=== PATIENT | male | born 1950 | race Caucasian/White ===

== ENCOUNTER → 2023-05-03 06:23 | Day surgery (SDC) | payer MEDICARE, OTHER, SELFPAY | LOC: GI 06:23 | PROVIDERS: ATTENDING PHYSICIAN Specialist; FAMILY PHYSICIAN Physician Assistant Medical | DX: Z12.11 Encounter for screening for malignant neoplasm of colon (principal); Z86.010 Personal history of colon polyps; K57.30 Diverticulosis of large intestine without perforation or abscess without bleeding; D12.3 Benign neoplasm of transverse colon; D12.0 Benign neoplasm of cecum; D12.2 Benign neoplasm of ascending colon; D12.5 Benign neoplasm of sigmoid colon; K63.5 Polyp of colon | CPT/HCPCS: 45385; 45380; 88305 ==

== ENCOUNTER 2023-05-15 02:30 | Emergency (ER) | payer MEDICARE, OTHER, SELFPAY ==
[2023-05-15 02:36] VITALS: BP 165/98
[2023-05-15 03:14] VITALS: BMI 29.1
[2023-05-15 03:23] VITALS: BP 128/65
--- NOTE | 2023-05-15 03:46 | ED.GENMED ---
History of Present Illness
General
Chief Complaint: Abdominal Pain
Source: patient
Time Seen by Provider: 05/15/23 03:22
Nursing documentation reviewed up to this point in time: agreed with
Travel History
Have you had any contact with someone who has COVID-19?: No
Do you have any symptoms of coronavirus? Fever > 100 degrees, chills, cough, shortness of breath, sore throat, loss of taste or smell, muscle aches, or headache?: No
History of Present Illness
History of Present Illness:
73 y/o M with history of BPH and prostate cancer presents to ED complaining of urethra and lower stomach pain. Patient states the pain originally started on his lower back at 8:30pm and then moved to his lower stomach and urethra. The pain is
constant. Patient is also reporting spasming and intense discomfort every few minutes. He is also reporting trouble urinating. He states that he feels like he has to pee but is not always able to. He was able to urinate in ED today for sample. He
denies dysuria. Patient currently takes Tamsulosin for his enlarged prostate and reports his cancer is currently being watched. No treatment started for prostate cancer. He does have urgency and incontinence in past due to the BPH.
If applicable-neuro sx onset
Onset of symptoms known: Yes
Date of onset of symptoms: 05/15/23
Time of onset of symptoms: 20:30
Review of Systems
Review of Systems
Allergies reviewed?: Yes
All Other Systems: ROS reviewed and negative except as documented in HPI and ROS
Constitutional: Reports no symptoms
EENT: Reports no symptoms
Respiratory: Reports no symptoms
Cardiac: Reports no symptoms
ABD/GI: Reports abdominal pain
: Reports frequency, difficulty voiding and other
Musculoskeletal: Reports no symptoms
Skin: Reports no symptoms
Neurological: Reports no symptoms
Endocrine: Reports no symptoms
Hematologic/Lymphatic: Reports no symptoms
Psychiatric: Reports no symptoms
Phy Exam
General Physical Exam
General Presentation: well appearing and mild distress
General age: appears stated age
General Skin: warm and dry
General Habitus: normal
General Mental: alert
General Hydration: appears well hydrated
Cardiovascular Exam
Cardiovascular Exam: regular rate/rhythm, no edema, no gallop, no murmur and normal peripheral pulses
Pulmonary Exam
Pulmonary Exam: lungs clear, no respiratory distress, no rales, no crackles and no rhonchi
Gastrointestinal Exam
Gastrointestinal Exam: normal bowel sounds, soft and tender (tender to palpation in suprapubic region )
Auscultation of Abdomen: normal
Neurological Exam
Neurological Exam: alert and oriented x3
Skin Exam
Skin Exam: normal color, warm/dry and no rash
Psychiatric Exam
Psychiatric Exam: normal mood/affect
Course
Orders/Labs/Results
Orders:
Orders
05/15/23 02:43
Bladder Scan- Treatment ONCE
Bladder Scan As Directed
Follow Bladder Retention/Intermittent Cath Algorithm?: No
05/15/23 03:30
Urinalysis Reflex To Culture Urgent
Date Specimen was Collected: 05/15/23
Time Specimen was Collected: 03:29
Urine Microscopic Reflex Cult Urgent
05/15/23 05:01
CR Abdomen - 1 View Urgent
Comment:
Reason For Exam: constipation
05/15/23 05:56
Phenazopyridine HCl [Pyridium] 200 mg PO NOW STA
05/15/23 06:18
Magnesium Citrate [Citroma] 300 ml PO ONCE ONE
05/15/23 06:19
Fosfomycin [Monurol] 3 gm PO ONCE ONE
Abnormal Lab Results
05/15/23
03:30
Urine Ketones Trace A
(Negative)
Ur Occult Blood Reflex 4+ A
(Negative)
Leukocyte Esterase Rfl Trace A
(Negative)
Urine RBC 30-40 A /HPF
(0-2)
Urine Bacteria (Reflex) Few A
(Negative)
Vital Signs
Initial and Last Documented VS:
Initial Vital Signs
Temp Pulse Resp BP Pulse Ox
98.1 F 79 18 165/98 99
05/15/23 02:36 05/15/23 02:36 05/15/23 02:36 05/15/23 02:36 05/15/23 02:36
Last Documented Vital Signs
Temp Pulse Resp BP Pulse Ox
98.1 F 65 21 114/52 95
05/15/23 02:36 05/15/23 05:00 05/15/23 05:00 05/15/23 05:00 05/15/23 05:00
MDM/Problems Addressed
Differential Diagnosis Includes:
UTI
BPH / Bladder Cancer
Bladder stones
Nephrolithiasis
*Critical Care Note
Total Time (30-74mins, 75-104mins- exclusive of procedures): Not Applicable
Update Note
Update Note:
0643: Patient given Pyridium and Fosfomycin in ED. Discharged home with Maxitrate for constipation.
ED Attending Note
-
Portions of this chart may have been created with voice recognition software.� Occasional wrong word or��sound alike� substitutions may have occurred due to the inherent limitations of voice recognition software.
Discharge Plan
Departure
Patient Disposition: Home (Routine Discharge)
Date of Disposition: 05/15/23
Time of Disposition: 06:23
Patient with high blood pressure during this ER visit?: Yes
Condition: Good
Discharge Problem:
Acute constipation, Acute UTI
Instructions: Constipation, Adult (DC), Urinary Tract Infection, Adult ED
Prescriptions:
New
phenazopyridine [Pyridium] 100 mg tablet
100 mg PO TID PRN (Reason: Pain) Qty: 14 0RF
No Action
tamsulosin 0.4 mg Capsule
0.4 mg PO DAILY
omeprazole [Prilosec] 20 mg Capsule,Delayed Release(Dr/Ec)
20 mg PO DAILY
fluticasone propionate [Flonase] 50 mcg/actuation [place],Suspension
2 spray INTRANASAL DAILY
tadalafil [Cialis] 5 mg Tablet
5 mg PO DAILY
Referrals:
Elle Franz PA-C [Family Provider] -
Activity Restrictions/Additional Instructions:
It was a pleasure meeting you and taking part in your care. We hope for your continued healing and wellness.
Please read discharge instructions in their entirety. However, they are for general education and may not describe your exact diagnosis at discharge. Information on your ER visit and medical conditions were discussed with you along with appropriate
follow up information...
If indicated, please take your medications as instructed and indicated on discharge paperwork.
Please schedule a follow up appointment as directed. Call to schedule an appointment
Please return to the emergency department with ANY change in, persisting, or worsening of symptoms. If any of your symptoms do not improve, or persist, or become more severe within 6-12 hours, please return to the emergency department for further
care.
Please return to the emergency department if you develop a headache, neck pain/stiffness, fever greater than 100.4F, chest pain, shortness of breath, persistent nausea, vomiting, slurred speech, difficulty walking, numbness/tingling, weakness, signs
of infection or any other symptoms that are worrisome to you.
If you have any questions or concerns please do not hesitate to call the Hospital at or E-mail me directly at [email or web address]
Interventions
Interventions:
*Risk Screen - Suicide Last Done: 05/15/23 02:36
*General Assessment Last Done: 05/15/23 02:36
*Neglect/Abuse Screening Last Done: 05/15/23 02:36
ED- Fall Risk Assessment Last Done: 05/15/23 02:36
*ED COVID-19 Vaccine History Last Done: 02/12/24 02:36
UZ-Qlivej-Anobxpsdjc Assessment Last Done: 05/15/23 03:14
[2023-05-15 03:48] LABS: Urine Albumin Trace (Neg - Trace); Urine Bilirubin Negative (Negative); Urine Character Clear (Clear); Urine Color Yellow; Urine Glucose Negative (Negative); Urine Ketone Trace (Negative); Urine Leukocyte Trace (Negative); Urine Nitrite Negative (Negative); Urine Occult Blood 4+ (Negative); Urine Specific Gravity 1.025 (<1.030); Urine Urobilinogen Negative (Neg - 1+)
[2023-05-15 04:00] VITALS: BP 119/42
[2023-05-15 04:05] LABS: Urine Mucus Few; Urine Squamous Cell 0-2 /LPF (Few)
[2023-05-15 04:06] LABS: Urine Bacteria Few (Negative); Urine Red Blood Cell 30-40 /HPF (0-2)
[2023-05-15 05:00] VITALS: BP 114/52
[2023-05-15] MEDS: CITROMA 300 ML PO (06:37)
[2023-05-15] MEDS: MONUROL 3 GM PO (06:37)
[2023-05-15] MEDS: Pyridium 200 MG PO (06:37)
== END 2023-05-15 06:50 | disposition home or self-care (01) ==
LOC: EMR 02:30
PROVIDERS: EMERGENCY PHYSICIAN Student in an Organized Health Care Education/Training Program; FAMILY PHYSICIAN Physician Assistant Medical
DX: K59.09 Other constipation (principal); N39.0 Urinary tract infection, site not specified; R03.0 Elevated blood-pressure reading, without diagnosis of hypertension
CPT/HCPCS: 99284; 51798; 74018; 81003; 81015

== ENCOUNTER → 2023-10-16 13:11 | Outpatient (REF) | payer MEDICARE, OTHER, SELFPAY | LOC: RAD 13:11 | PROVIDERS: ATTENDING PHYSICIAN Physician Assistant Medical | DX: R22.9 Localized swelling, mass and lump, unspecified (principal); I26.90 Septic pulmonary embolism without acute cor pulmonale | CPT/HCPCS: 93971 ==

== ENCOUNTER → 2024-01-24 07:54 | Outpatient (REF) | payer MEDICARE, OTHER, SELFPAY | LOC: RAD 07:54 | PROVIDERS: ATTENDING PHYSICIAN Internal Medicine Hematology & Oncology; FAMILY PHYSICIAN Physician Assistant Medical | DX: S45.3 Injury of superficial vein at shoulder and upper arm level (principal); Z85.46 Personal history of malignant neoplasm of prostate; M79.601 Pain in right arm | CPT/HCPCS: 93971 ==

== ENCOUNTER → 2024-02-07 08:32 | Outpatient (REF) | payer MEDICARE, OTHER, SELFPAY | LOC: MRI 3T 08:32 | PROVIDERS: ATTENDING PHYSICIAN Surgery; FAMILY PHYSICIAN Physician Assistant Medical | DX: C61 Malignant neoplasm of prostate (principal) | CPT/HCPCS: 72197; A9575 ==

== ENCOUNTER 2024-05-23 06:14 | Day surgery (SDC) | payer MEDICARE, OTHER, SELFPAY | END 2024-05-23 11:56 | disposition home or self-care (01) | LOC: GI 06:14 | PROVIDERS: ATTENDING PHYSICIAN Specialist; FAMILY PHYSICIAN Physician Assistant Medical | DX: Z12.11 Encounter for screening for malignant neoplasm of colon (principal); D12.4 Benign neoplasm of descending colon; D12.5 Benign neoplasm of sigmoid colon; K63.5 Polyp of colon; K57.30 Diverticulosis of large intestine without perforation or abscess without bleeding; Z86.0101 Personal history of adenomatous and serrated colon polyps | CPT/HCPCS: 45380; 88305 ==

== ENCOUNTER 2024-10-07 06:16 | Day surgery (SDC) | payer MEDICARE, OTHER, SELFPAY ==
--- NOTE | 2024-10-03 11:53 | PTCARENOTE ---
Unable to confirm medications at this time, patient stated he will call or email his list when he gets home. Patient instructed to also bring a printed list of medications day of surgery, with names, dosages, and last dose taken. Patient
instructed to stop all over the counter medications until after the surgery. Confirmed with patient that he did not currently take any GLP1/SGLT2 medications.
[2024-10-07] VITALS (8 sets, daily range): BP systolic 85–144; BP diastolic 41–74; BMI 26.3
[2024-10-07] MEDS: NORMOSOL-R/PLASMALYTE-A 1000 IV (07:10)
== END 2024-10-07 09:45 | disposition home or self-care (01) ==
LOC: SDS 06:16
PROVIDERS: ATTENDING PHYSICIAN Surgery
DX: C61 Malignant neoplasm of prostate (principal)
CPT/HCPCS: 55700; 76998; 88305

== ENCOUNTER → 2025-03-11 15:27 | Outpatient (REF) | payer MEDICARE, OTHER, SELFPAY | LOC: RAD 15:27 | PROVIDERS: ATTENDING PHYSICIAN Internal Medicine Hematology & Oncology | DX: M79.601 Pain in right arm (principal); R22.1 Localized swelling, mass and lump, neck | CPT/HCPCS: 93971 ==

== ENCOUNTER → 2025-03-19 08:28 | Outpatient (REF) | payer MEDICARE, OTHER, SELFPAY | LOC: MRI 3T 08:28 | PROVIDERS: ATTENDING PHYSICIAN Surgery; FAMILY PHYSICIAN Physician Assistant Medical | DX: C61 Malignant neoplasm of prostate (principal) | CPT/HCPCS: 72197; A9575 ==

== ENCOUNTER → 2025-03-26 06:59 | Outpatient (REF) | payer MEDICARE, OTHER, SELFPAY | LOC: RAD 06:59 | PROVIDERS: ATTENDING PHYSICIAN Internal Medicine Hematology & Oncology; FAMILY PHYSICIAN Physician Assistant Medical | DX: R22.31 Localized swelling, mass and lump, right upper limb (principal); M79.601 Pain in right arm; S45.3 Injury of superficial vein at shoulder and upper arm level; Z85.46 Personal history of malignant neoplasm of prostate | CPT/HCPCS: 73206; Q9967 ==